=== PATIENT | female | born 1975 | race Caucasian/White ===

== ENCOUNTER 2024-02-29 11:01 | Emergency (ER) | payer MEDICARE, SELFPAY ==
[2024-02-29 11:01] VITALS: BP 127/90; PULSE 91; RESP 16; TEMP 37; O2SAT 100; BMI 35.2
--- NOTE | 2024-02-29 11:12 | EDS_ITS ---
HPI History of Present Illness Chief Complaint: Lower Extremity Injury [facility] Medical History (Updated 02/29/24 @ 11:21 by Yoly Galvez) Hx of blood clots History of cancer of vulva Lupus Allergy/AdvReac Type Severity Reaction Status Date / Time adhesive Allergy Mild Rash Verified 02/29/24 11:04 Social History Smoking Status: Never smoker EXAM Physical Exam Const Vital Signs: 02/29/24 11:01 Temperature 98.6 F Temperature Source Temporal Pulse Rate 91 Respiratory Rate 16 Blood Pressure 127/90 H Blood Pressure Mean 102 Pulse Ox 100 Oxygen Delivery Method Room Air [facility] MDM MDM Narrative Medical decision making narrative: HISTORY OF PRESENT ILLNESS: 49-year-old female presents with concern for blood clot in left foot. Denies chest pain or shortness of breath. Denies any trauma. REVIEW OF SYSTEMS: Pertinent positives: left leg swelling Pertinent negatives: Chest pain, shortness of breath PHYSICAL EXAM: Nursing triage notes reviewed, Vital signs reviewed Constitutional: please see mdm HENT: MMM Eyes: Pupils equal round and reactive to light, Extraocular muscles intact Neck: No stridor, no JVD, full neck ROM Lungs: Clear to auscultation, No wheezing or rales. No increased work of breathing, no conversational dyspnea, no accessory muscle use, no nasal flaring. No respiratory distress noted Heart: Regular rate and rhythm, No murmurs, No rubs and No gallops, 2+ distal pulses (radial, femoral, posterior tibial) in all extremities Abdomen: Soft, there is no tenderness, rigidity, rebound or guarding, no obvious peritoneal signs, no palpable pulsatile abdominal masses, no auscultated abdominal bruit : No CVAT Extremities: No edema, no gross deformities, noted symmetric pulses, slight swelling to the left lower extremity, no calf tenderness, no discoloration, poikilothermia, pallor, paresthesia. Neuro: No new focal neurological deficits, cranial nerves II through XII intact, 5/5 strength in all present extremities. Intact sensation to light touch in all present extremities, 2+ reflexes bilateral patella tendons. Skin: No rash or lesions noted MEDICAL DECISION MAKING: Chief Complaint: leg pain External records reviewed: reviewed prior allergies, Factors affecting care: DVT Social determinants of health: none History obtained from others: none Consults: none MDM Narrative: Patient was given that he stay with, afebrile, nontoxic appearing. Exam with a warm well-perfused left lower extremity. No gross deformities. I considered the following differential diagnosis: DVT, arterial occlusion, fracture dislocation The patient had symmetric pulses. No clinical sign of arterial occlusion. No trauma to suggest fracture dislocation. DVT ultrasound was obtained. ALL IMAGES (IF OBTAINED) HAVE BEEN PERSONALLY REVIEWED AND INTERPRETED BY MYSELF. Duplex ultrasound was negative for acute DVT. The etiology of the patient's complaint remains unclear but unlikely be life-threatening given negative DVT ultrasound, reassuring exam and lack of trauma. Strict return precautions were discussed. The patient and/or family, caregivers express understanding. The patient and/or family, caregivers agrees with the plan. Shared decision making: I will have a discussion with the patient and or visitors regarding risk/melody efits of further testing or admission. They will be made aware of of the risk/benefits inherent in this decision they will be given the opportunity to voice understanding. Total critical care time today provided was at least 0 minutes. This excludes separately billable procedures. Critical care time (if documented) is secondary to the patient having high probability of clinically significant/life threatening deterioration in the patient's condition which required my urgent intervention. Impression: 1. Left leg pain 2. History of DVT Dispo: Discharge home This note was generated with nvite dictation software. It may contain incorrect words, spelling, and punctuation that were not noted in review of the chart prior to signing. Discharge Plan Triage Chief Complaint: Lower Extremity Injury ED Provider: Garett Hinton Dx/Rx/DC Orders Primary Care Provider: Lucas Acosta Jr. Referrals: Lucas Acosta Jr., DO [Primary Care Provider] - Print Language: Azerbaijani
--- NOTE | 2024-02-29 11:31 | VDLE_ITS ---
Reason For Study: Swelling LLE RIGHT LEFT CFV is compressible, spontaneous, phasic, GSV is normal. competent and demonstrates normal CFV is compressible, spontaneous, phasic, augmentation. competent, and demonstrates normal Procedure augmentation. This is a venous duplex using B-mode, color FV is compressible, spontaneous, phasic, flow and spectral Doppler. competent and demonstrates normal Exam performed portable in ED. augmentation. A preliminary report was called and/or faxed POP V is compressible, spontaneous, phasic, to Dr. Hinton. competent and demonstrates normal augmentation. T/P Trunk is compressible. PTV is compressible. LT PerV is compressible. Lt [employer] distal: 51cm/s, Triphasic flow Lt DPA distal: 43 cm/s, Triphasic flow. VL/Venous Duplex US, Unilateral Interpretation Summary Deep veins of the left lower extremity are patent and compressible segmentally. There is no evidence of left lower extremity deep vein thrombosis. The left great saphenous vein marguerite ears patent and compressible segmentally. Dorsalis pedis and posterior tibial arteries with triphasic waveforms Ordering Physician: Garett Hinton Referring Physician: Lucas Acosta Performed By: Carleen Peace, GLORIA, RVT
[2024-02-29 14:00] VITALS: BP 108/66; PULSE 76; RESP 15; TEMP 36.9; O2SAT 96
== END 2024-02-29 14:03 | disposition home or self-care (01) ==
PROVIDERS: Emergency Provider Emergency Medicine; PCP Family Medicine; Visit Provider Emergency Medicine
DX: M79.605 Pain in left leg (principal); Z86.718 Personal history of other venous thrombosis and embolism
CPT/HCPCS: 93971; 99282

== ENCOUNTER 2024-04-14 08:27 | Emergency (ER) | payer MEDICARE, SELFPAY ==
[2024-04-14 08:28] VITALS: BP 130/95; PULSE 80; RESP 16; TEMP 37; O2SAT 98; BMI 35.3
--- NOTE | 2024-04-14 08:39 | ED.VIS.LOWEX ---
HPI History of Present Illness HPI Narrative: Patient presents with pain to her right hip and thigh that began 1 week ago. Patient states she fell at that time. Patient describes her pain as sharp. Patient states her pain does radiate into her back. Patient states nothing makes it better and nothing makes it worse. Patient denies any paresthesias or weakness. Patient denies any head injury or loss of consciousness. Patient denies any other injuries. Chief Complaint: Lower Extremity Injury Informant: patient Occured/Mechanism Mechanism/Context: Yes fall Onset/Context/Timing Onset: Weeks (1) Context: Sudden Onset Timing: Continuous Quality of Pain: Sharp Location: Right hip and thigh Worsened by: Nothing Relieved by: Nothing Associated Symptoms Associated Symptoms: Negative for Parasthesia, Weakness or Loss of Funtion PFSH PFSH Medical History (Updated 04/14/24 @ 14:[address] Ernie Torres DO) Hx of blood clots History of cancer of vulva Lupus Allergy/AdvReac Type Severity Reaction Status Date / Time adhesive Allergy Mild Rash Verified 02/29/24 11:04 Surgical History (Updated 04/14/24 @ 14:[address] Ernie Torres DO) History of hysterectomy History of lumbar laminectomy Social History Smoking Status: Never smoker ROS ROS ED Constitutional Constitutional ED: Denies chills or fever(s) Eyes Eyes: Denies blurry vision or change in vision ENT ENT ED: Denies rhinorrhea or sore throat Cardiovascular Cardiovascular: Reports chest pain; Denies palpitations Respiratory/Chest Respiratory/Chest: Denies cough or dyspnea Gastrointestinal Gastrointestinal: Reports abdominal pain; Denies nausea or vomiting Genitourinary Genitourinary ED: Denies dysuria or hematuria Musculoskeletal Musculoskeletal: Reports back pain; Denies neck pain Integumentary Denies abscess or rash Neurologic Neurologic: Denies headache(s) or weakness Allergic/Immunologic Allergic/Immunologic ED: Denies mouth swelling or urticaria EXAM Physical Exam Const Vital Signs: 04/14/24 08:28 Temperature 98.6 F Temperature Source Temporal Pulse Rate 80 Respiratory Rate 16 Blood Pressure 130/95 H Blood Pressure Mean 106 Pulse Ox 98 Oxygen Delivery Method Room Air Positive well nourished and well developed General Appearance ED: well developed and NAD HEENT Reports moist mucous membranes normocephalic and atraumatic Neck full ROM and supple Resp normal respiratory effort and clear to auscultation bilaterally Cardio regular rate and regular rhythm GI non-tender and non-distended Palpation: soft Back/Spine no CVA tenderness Back/Spine Narrative: There is mild tenderness over the right lower lumbar paraspinal muscles. There is no midline tenderness. There is no bony crepitance or step-off. Range of motion was limited in all motions of the lumbar spine secondary to pain. Lumbar Spine / Lower Back: straight leg raise negative bilaterally Extremity Extremity Narrative: There is tenderness over the right hip and right knee. There is no obvious deformity noted. Range of motion was slightly limited in all motions of the right hip and right knee secondary to pain. Strength is 5/5 bilaterally in the lower extremities. There are no sensory deficits noted. Neuro oriented x3, CN's II-XII intact bilaterally, moves all extremities and no sensory deficits noted Sensorium / Orientation: alert Motor Exam: strength 5/5 throughout Psych mental status grossly normal MDM MDM MDM Narrative Medical decision making narrative: Differential diagnosis includes hip fracture, patella fracture, lumbosacral strain, urinary tract infection, colitis, diverticulitis, and ureteral calculus. CBC will be obtained to assess for leukocytosis and anemia. Basic metabolic profile will be obtained to assess for electrolyte abnormality and renal function. Urinalysis will be obtained to assess for urinary tract infection and hematuria. X-rays of the right hip will be obtained to assess for hip fracture. X-rays of the right knee will be obtained to assess for patella fracture. Lab Data Attestation: I reviewed the patient's lab results. Lab results narrative: CBC was reviewed. There is a slight leukocytosis of 12.1. The remainder is within normal limits. Basic metabolic profile was reviewed and was within normal limits. Urinalysis was reviewed. There is no evidence of urinary tract infection or hematuria. Labs: Laboratory Results - last 24 hr 04/14/24 04/14/24 09:15 09:58 WBC 12.1 H RBC 5.39 Hgb 15.2 H Hct 46.3 MCV 85.9 MCH 28.2 MCHC 32.8 RDW Std Deviation 44.3 H RDW Coeff of Terri 14.1 Plt Count 372 MPV 9.0 Immature Gran % (Auto) 0.600 Neut % (Auto) 56.0 Lymph % (Auto) 32.0 [place] % (Auto) 5.7 Eos % (Auto) 4.5 Baso % (Auto) 1.2 H Absolute Neuts (auto) 6.8 Absolute Lymphs (auto) 3.87 Nucleated RBC % 0 Sodium 138 Potassium 4.5 Chloride 110 H Carbon Dioxide 24.0 Anion Gap 5 BUN 14 Creatinine 0.81 Estim Creat Clear Calc 112.46 Est GFR (MDRD) Af Amer 96 Est GFR (MDRD) Non-Af 80 BUN/Creatinine Ratio 17.3 Glucose 102 Calcium 9.1 Urine Color Yellow Urine Clarity Clear Urine pH 6.0 Ur Specific [place] 1.015 Urine Protein Negative Urine Glucose (UA) Normal Urine Ketones Negative Urine Occult Blood Negative Urine Nitrite Negative Urine Bilirubin Negative Urine Urobilinogen Normal Ur Leukocyte Esterase 25 H Urine RBC 0 SEEN Urine WBC 0-5 SEEN Ur Squamous Epith Cells 0-5 SEEN Urine Bacteria RARE Urine Mucus 0 SEEN Radiography Diagnostic Testing: Clinical Impression(s) from Imaging Studies Hip/Pelvis X-Ray 04/14/24 10:30 IMPRESSION: Degenerative changes are seen of the visualized lower lumbar spine. Sacroiliac joints appear symmetric and within the normal range for age. Right groin surgical clip is seen. Hip joints appear symmetric and within the normal range, without evidence of joint narrowing. No evidence of femoral head osteonecrosis. No acute fracture or dislocation is evident. If clinical concern persists, short-term follow-up imaging may be obtained to rule out a currently occult fracture. Reading Location: [address] Knee X-Ray 04/14/24 10:30 IMPRESSION: No right knee joint effusion is seen. Mild tricompartmental degenerative changes are present definite area of joint space narrowing. No fracture or dislocation is seen. If clinical concern persists, short-term follow-up imaging may be obtained to rule out a currently occult fracture. Reading Location: [address] X-rays of the right hip were obtained. There are 3 views. On my independent interpretation, there is no acute fracture or dislocation noted. There are some degenerative changes noted in the lumbar spine. Radiologist also interpreted the x-rays and agrees. X-rays of the right knee were obtained. There are 4 views. On my independent interpretation, there is no acute fracture or joint effusion. There is tricompartmental degenerative changes noted. Radiologist also interpreted the x-rays and agrees. Treatment and Re-Evaluation Narrative: Patient was given a dose of [place] here. Patient did not want to wait for her results and left prior to receiving her results. Patient did not receive her discharge instructions. Discharge Plan Triage Chief Complaint: Lower Extremity Injury ED Provider: Ernie Torres Dx/Rx/DC Orders Clinical Impression: Strain of right hip and thigh, Acute lumbosacral myofascial strain, Fall Instructions: ED Hip Strain Primary Care Provider: Care Physician,No Primary Referrals: NOT,DEFINED [Non-Staff] - Print Language: Turkish Disposition Disposition: Elopement Discharge Date/Time: 04/14/24 12:34
[2024-04-14] MEDS: HYDROcodone Bitartrate/Apap 5/325 Tablet PO (09:08)
[2024-04-14 09:26] LABS: Absolute Lymphocyte Count 3.87 X10^3/uL (0.83-4.51); Absolute Neutrophil Count 6.8 X10^3/uL (2.0-7.7); Basophil# 0.15 X10^3/uL; Basophil% 1.2 % (0-1); Eosinophil# 0.55 X10^3/uL; Eosinophils% 4.5 % (0-5); Hematocrit 46.3 % (37-47); Hemoglobin 15.2 g/dL (12.0-15.0); Lymphocyte # 3.87 X10^3/ul (0.83-4.51); Mean Corp Hgb Conc 32.8 g/dL (32-36); Mean Corpuscular Hgb 28.2 pg (27.0-32.0); Mean Corpuscular Volume 85.9 fL (81-99); Monocyte# 0.69 X10^3/uL; Monocyte% 5.7 % (0-10); NRBC Flagged by Analyzer 0 % (0-5); Neutrophil # 6.78 X10^3/uL (2.7-7.7); Platelet Count 372 K/mm3 (150-450); RBC Distribution Width CV 14.1 % (11.6-14.6); RBC Distribution Width SD 44.3 fl (35.1-43.9); Red Blood Count 5.39 M/mm3 (4.2-5.4); White Blood Count 12.1 K/mm3 (4.4-11.0)
[2024-04-14 09:51] LABS: Anion Gap 5 (5-15); BUN 14 mg/dL (7-18); BUN/Creat Ratio 17.3 RATIO (10-20); Calcium,Total 9.1 mg/dL (8.5-10.1); Chloride 110 mmol/L (98-107); Creatinine, Serum 0.81 mg/dL (0.55-1.02); EST Glomerular Filtration Rate 80 mL/min (>60); Est Glom Filt Rate - Afr Amer 96 mL/min (>60); Estimated Creatinine Clearance 112.46 ml/min; Glucose 102 mg/dL (74-106); Potassium 4.5 mmol/L (3.5-5.1); Sodium Level 138 mmol/L (136-145)
[2024-04-14 10:14] LABS: Mucous, Urine 0 SEEN /hpf (<or=2+)
[2024-04-14 10:24] LABS: Color, Urine Yellow (Yellow); Glucose, Dipstick Normal (Normal); Ketone-Dipstick Negative (Negative); Leukocyte Esterase-Dipstick 25 /ul (Negative); Nitrite-Dipstick Negative (Negative); Occult Blood-Urine Negative /ul (Negative); Protein-Dipstick Negative (Negative); Specific Gravity, Urine 1.015 (1.002-1.030); Urine Bilirubin Dipstick Negative (Negative); Urine Clarity Clear (Clear); Urine Urobilinogen Normal (Normal)
--- NOTE | 2024-04-14 10:30 | RAD_ITS ---
PROCEDURE: KNEE 4 OR MORE VIEWS REASON FOR EXAM: Injury, pain. TECHNIQUE: Four view right knee series. COMPARISON: None. RAD/Knee 4 or More Views IMPRESSION: No right knee joint effusion is seen. Mild tricompartmental degenerative changes are present definite area of joint s pace narrowing. No fracture or dislocation is seen. If clinical concern persists, short-term follow-up imaging may be obtained to r ule out a currently occult fracture. Reading Location: [id number]
--- NOTE | 2024-04-14 10:30 | RAD_ITS ---
PROCEDURE: HIP, UNI W/ PELVIS 2-3 VIEWS REASON FOR EXAM: Injury, with the pain. TECHNIQUE: Three-view right hip to include the AP pelvis COMPARISON: None. RAD/HIP, UNI W/ Pelvis 2-3 Views IMPRESSION: Degenerative changes are seen of the visualized lower lumbar spine. Sacroiliac joints appear symmetric and within the normal range for age. Right groin surgical clip is seen. Hip joints appear symmetric and within the normal range, without evidence of shaina int narrowing. No evidence of femoral head osteonecrosis. No acute fracture or dislocation is evident. If clinical concern persists, short-term follow-up imaging may be obtained to r ule out a currently occult fracture. Reading Location: [id number]
[2024-04-14 10:40] LABS: Bacteria RARE /hpf (None Seen); Red Blood Cells-Urine 0 SEEN /hpf (0-5); Squamous Epithelial Cells - UA 0-5 SEEN /hpf (5-10); White Blood Cells 0-5 SEEN /hpf (0-5)
--- NOTE | 2024-04-14 11:42 | ED.RN ---
PT. REQUESTED IV TO BE REMOVED AND TO BE DISCHARGED. PIV REMOVED. DR KIM NOTIFIED THAT PT WAS READY TO LEAVE
--- NOTE | 2024-04-14 18:11 | CM.ED ---
Social Work Reason for visit: No PCP Patient verified that he does not currently have a PCP. [facility] provider list given. No further needs identified. Kareen Calvin, DIRECTOR OF EPIDEMIOLOGY, EDI DEVELOPER
== END 2024-04-14 12:34 | disposition left against medical advice (07) ==
PROVIDERS: Emergency Provider Emergency Medicine; Visit Provider Emergency Medicine
DX: S76.011A Strain of muscle, fascia and tendon of right hip, initial encounter (principal); S39.012A Strain of muscle, fascia and tendon of lower back, initial encounter; W19.XXXA Unspecified fall, initial encounter
CPT/HCPCS: 73502; 73564; 80048; 81001; 85025; 99283; A4216